=== PATIENT | male | born 1960 | race African-American/Black ===

== ENCOUNTER 2023-12-09 23:42 | Emergency (ER) | payer BC ==
[~2023-12-09] VITALS: Ht 177.8 cm; Wt 127.0 kg
[2023-12-09 23:59] VITALS: BP_SYST 136; PULSE 55; RESP 16; TEMP 98.2; O2SAT 98
[2023-12-10] MEDS ORDERED: EPINEPHrine HCL 1 MG/ML VIAL SUBCUT ONE
[2023-12-10] MEDS ORDERED: DIPHENHYDRAMINE INJ 50 MG/ML VIAL IVP ONE
[2023-12-10] MEDS ORDERED: methylPREDNISolone SOD SUCC/PF 62.5 MG/ML VIAL IVP ONE
[2023-12-10] MEDS ORDERED: hydrALAZINE HCL 25 MG TABLET ONE (01:37)
[2023-12-10] MEDS: hydrALAZINE HCL 25 MG TABLET PO ONE (01:44)
[2023-12-10 01:48] VITALS: TEMP 96.7
[2023-12-10 02:42] VITALS: BP_SYST 129; PULSE 54; RESP 18; O2SAT 96
== END 2023-12-10 02:42 ==
LOC: SED 23:42
DX: I10 Essential (primary) hypertension (principal); Z79.899 Other long term (current) drug therapy
CPT/HCPCS: 99283; J0171